=== PATIENT | female | born 2000 | race African-American/Black ===

== ENCOUNTER 2019-01-17 00:56 | Emergency (ER) | payer MEDICAID ==
[~2019-01-17] VITALS: Ht 172.7 cm; Wt 59.0 kg
[2019-01-17] MEDS ORDERED: IBUPROFEN 600MG TABLET PO ONE (01:45)
[2019-01-17] MEDS ORDERED: HYDROCODONE/ACETAMINOPHEN 5/325MG TABLET PO ONE (01:45)
[2019-01-17 01:48] VITALS: BP 113/64
== END 2019-01-17 02:00 | disposition home or self-care (01) ==
LOC: ER 00:56
DX: Z76.0 Encounter for issue of repeat prescription (principal); M54.9 Dorsalgia, unspecified
CPT/HCPCS: 99283

== ENCOUNTER 2019-08-26 13:38 | Emergency (ER) | payer MEDICAID ==
[~2019-08-26] VITALS: Ht 167.6 cm; Wt 60.0 kg
[2019-08-26 13:40] VITALS: BP 103/71
[2019-08-26] MEDS ORDERED: ACETAMINOPHEN 325MG TABLET PO ONE (15:00)
[2019-08-26 16:13] LABS: CLARITY URINE CLEAR (CLEAR); COLOR URINE DARK YELLOW (YELLOW); KETONES URINE TRACE (NEGATIVE); LEUKOCYTE ESTERASE URINE TRACE (NEGATIVE); NITRITE URINE NEGATIVE (NEGATIVE); OCCULT BLOOD URINE NEGATIVE (NEGATIVE); PH URINE 5.5 (4.5-8.0); PROTEIN URINE TRACE (NEGATIVE); SPECIFIC GRAVITY URINE 1.035 (1.005-1.030)
[2019-08-26] MEDS ORDERED: KETOROLAC 30MG/ML VIAL IM ONE (16:30)
== END 2019-08-26 16:38 | disposition home or self-care (01) ==
LOC: ER 13:55
DX: R51 Headache (principal); M54.2 Cervicalgia; M54.5 Low back pain; V89.2XXA Person injured in unspecified motor-vehicle accident, traffic, initial encounter; Y93.89 Activity, other specified; Y92.89 Other specified places as the place of occurrence of the external cause; Y99.8 Other external cause status
CPT/HCPCS: 72100; 81003; 81025; 99285

== ENCOUNTER 2019-09-05 14:23 | Emergency (ER) | payer MEDICAID ==
[~2019-09-05] VITALS: Ht 165.1 cm; Wt 61.0 kg
[2019-09-05 14:39] VITALS: BP 114/68
== END 2019-09-05 15:44 | disposition left against medical advice (07) ==
LOC: ER 14:23
DX: Z53.21 Procedure and treatment not carried out due to patient leaving prior to being seen by health care provider (principal)

== ENCOUNTER 2019-10-11 00:15 | Emergency (ER) | payer MEDICAID ==
[~2019-10-11] VITALS: Ht 165.1 cm; Wt 61.0 kg
[2019-10-11 00:23] VITALS: BP 113/65
[2019-10-11] MEDS ORDERED: ACETAMINOPHEN 325MG TABLET PO ONE (01:30)
== END 2019-10-11 03:44 | disposition home or self-care (01) ==
LOC: ER 00:15
DX: S00.12XA Contusion of left eyelid and periocular area, initial encounter (principal); S00.11XA Contusion of right eyelid and periocular area, initial encounter; R51 Headache; Y04.0XXA Assault by unarmed brawl or fight, initial encounter; Y93.89 Activity, other specified; Y92.89 Other specified places as the place of occurrence of the external cause; Y99.8 Other external cause status
CPT/HCPCS: 70486; 81025; 99284

== ENCOUNTER 2021-09-15 18:20 | Emergency (ER) | payer MEDICAID ==
[~2021-09-15] VITALS: Ht 170.2 cm; Wt 61.0 kg
[2021-09-15] MEDS ORDERED: IBUP-2028 MT (18:57)
[2021-09-15] MEDS ORDERED: TOPUD PO (18:57)
[2021-09-15] MEDS ORDERED: BO1 TP (18:57)
[2021-09-15] MEDS ORDERED: ACETAMINOPHEN 325MG TABLET PO ONE (19:00)
[2021-09-15] MEDS ORDERED: IBUPROFEN 400MG TABLET PO ONE (19:00)
[2021-09-15 19:06] VITALS: BP 114/72
== END 2021-09-15 19:04 | disposition home or self-care (01) ==
LOC: ER 18:20
DX: S30.811A Abrasion of abdominal wall, initial encounter (principal); W18.39XA Other fall on same level, initial encounter; Y93.89 Activity, other specified; Y92.89 Other specified places as the place of occurrence of the external cause; Y99.8 Other external cause status; Z79.899 Other long term (current) drug therapy
CPT/HCPCS: 99283

== ENCOUNTER 2023-06-11 21:49 | Emergency (ER) | payer MEDICAID ==
[~2023-06-11] VITALS: Ht 165.1 cm; Wt 57.0 kg
[~2023-06-11 21:49] MED LIST: BO1 TP; IBUP-2028 MT; TOPUD PO
[2023-06-11 22:54] VITALS: BP 110/73; PULSE 73; RESP 17; TEMP 98.1; O2SAT 99
== END 2023-06-12 05:03 | disposition left against medical advice (07) ==
LOC: ER 21:49
DX: R51.9 Headache, unspecified (principal); Z53.21 Procedure and treatment not carried out due to patient leaving prior to being seen by health care provider
CPT/HCPCS: 99281

== ENCOUNTER 2023-09-20 21:45 | Emergency (ER) | payer MEDICAID ==
[~2023-09-20] VITALS: Ht 165.1 cm; Wt 56.0 kg
[2023-09-20 22:04] VITALS: BP 121/81; PULSE 100; RESP 20; TEMP 98; O2SAT 100
== END 2023-09-21 01:27 | disposition left against medical advice (07) ==
LOC: ER 22:05
DX: M79.646 Pain in unspecified finger(s) (principal); Z53.21 Procedure and treatment not carried out due to patient leaving prior to being seen by health care provider
CPT/HCPCS: 73120

== ENCOUNTER 2023-12-14 00:17 | Emergency (ER) | payer MEDICAID ==
[~2023-12-14] VITALS: Ht 165.1 cm; Wt 57.0 kg
[2023-12-14 00:31] VITALS: O2SAT 100
[2023-12-14 00:58] VITALS: BP 151/92; PULSE 90; RESP 20; TEMP 98.3; O2SAT 100
== END 2023-12-14 05:18 | disposition left against medical advice (07) ==
LOC: ER 00:17
DX: Z11.3 Encounter for screening for infections with a predominantly sexual mode of transmission (principal); Z53.21 Procedure and treatment not carried out due to patient leaving prior to being seen by health care provider
CPT/HCPCS: Z7610 ×2

== ENCOUNTER 2024-04-07 17:02 | Emergency (ER) | payer MEDICAID ==
[~2024-04-07] VITALS: Ht 162.6 cm; Wt 60.0 kg
[2024-04-07 17:06] VITALS: BP 120/72; PULSE 109; RESP 18; TEMP 99; O2SAT 97
[2024-04-07] MEDS ORDERED: IBUPROFEN 400MG TABLET PO ONE (18:00)
[2024-04-07] MEDS ORDERED: ACETAMINOPHEN 325MG TABLET PO ONE (18:00)
[2024-04-07] MEDS: IBUPROFEN 400MG TABLET PO NR (19:11)
[2024-04-07] MEDS: ACETAMINOPHEN 325MG TABLET PO NR (19:12)
[2024-04-07] MEDS ORDERED: CETI1TAB MT (19:20)
[2024-04-07] MEDS ORDERED: NAPR-679 MT (19:20)
[2024-04-07] MEDS ORDERED: TOPUD MT (19:20)
[2024-04-07] MEDS ORDERED: BENZ200C52 MT (19:20)
== END 2024-04-07 20:18 | disposition left against medical advice (07) ==
LOC: ER 17:02
DX: B34.9 Viral infection, unspecified (principal); Z79.1 Long term (current) use of non-steroidal anti-inflammatories (NSAID)
CPT/HCPCS: 71045; 99283